=== PATIENT | female | born 1945 | race Caucasian/White ===

== ENCOUNTER → 2019-01-21 12:30 | Outpatient (REF) | payer MEDICARE, SELFPAY | LOC: OLS.ACW200 12:30 | PROVIDERS: Visit Provider Internal Medicine | DX: K56.609 Unspecified intestinal obstruction, unspecified as to partial versus complete obstruction (principal); M62.59 Muscle wasting and atrophy, not elsewhere classified, multiple sites; R27.9 Unspecified lack of coordination; Z74.09 Other reduced mobility | CPT/HCPCS: 87070; 87077; 87186; 87205 ==

== ENCOUNTER → 2019-02-20 | Outpatient (REF) | payer MEDICARE, SELFPAY ==
[2019-02-20 13:31] LABS: Anion Gap 9 (5-15); BUN 25 mg/dL (7-18); BUN/Creat Ratio 27.1 RATIO (10-20); Calcium,Total 9.3 mg/dL (8.5-10.1); Chloride 98 mmol/L (98-107); Creatinine, Serum 0.92 mg/dL (0.55-1.02); EST Glomerular Filtration Rate 64 mL/min (>60); Est Glom Filt Rate - Afr Amer 77 mL/min (>60); Glucose 117 mg/dL (74-106); Potassium 4.2 mmol/L (3.5-5.1); Sodium Level 130 mmol/L (136-145)
== END | disposition home or self-care (01) ==
LOC: OLS.ACW200 11:45
PROVIDERS: Visit Provider Internal Medicine
DX: K56.609 Unspecified intestinal obstruction, unspecified as to partial versus complete obstruction (principal); M62.59 Muscle wasting and atrophy, not elsewhere classified, multiple sites; R27.9 Unspecified lack of coordination; Z74.09 Other reduced mobility
CPT/HCPCS: 36415; 80048